=== PATIENT | female | born 1990 | race Caucasian/White ===

== ENCOUNTER → 2016-07-23 | Outpatient (CLI) | payer SELFPAY ==
[~2016-07-23] MED LIST: HYDR-4246 PO; IBUP-14 PO; ONDA4TAB7 PO
--- NOTE | 2016-07-23 14:48 | DI ---
Indication: ITS.REASON: N89.8 VAGINAL DISCHARGE PROCEDURE: US PELVIC NON OB W/TRANS VAG: Encounter: Initial Comparison: None FINDINGS: Transvaginal and transabdominal pelvic imaging was performed. The uterus measures 7.3 x 3.1 x 3.5 cm. The parenchyma is homogeneous without fibroids. The endometrial stripe measures 10 mm in thickness. There is no evidence of focal endometrial mass. Both ovaries are identified and normal in appearance. The right ovary measures 3.1 x 2.5 x 2.2 cm. The left ovary measures 1.7 x 1.8 x 2.2 cm. There are no abnormal adnexal masses detected. No free fluid. IMPRESSION: Unremarkable pelvic sonogram. .
== END ==
LOC: IMA 12:32
PROVIDERS: ATTEND Nurse Practitioner Family
DX: N89.8 Other specified noninflammatory disorders of vagina (principal)